=== PATIENT | female | born 1960 | race Caucasian/White ===

== ENCOUNTER 2020-03-07 01:13 | Outpatient (CLI) | payer BC, SELFPAY ==
[2020-03-07 18:17] LABS: SARS-CoV-2 RNA PCR Negative
== END 2020-03-07 01:14 | disposition home or self-care (01) ==
LOC: ANHCOVIDDT 01:14
PROVIDERS: PCP Internal Medicine; Visit Provider Internal Medicine Gastroenterology
DX: Z01.812 Encounter for preprocedural laboratory examination (principal); Z20.828 Contact with and (suspected) exposure to other viral communicable diseases
CPT/HCPCS: 87635; C9803; U0003

== ENCOUNTER 2020-03-09 01:10 | Day surgery (SDC) | payer BC, SELFPAY ==
[2020-03-05 10:54] VITALS: BMI 38.5
[2020-03-09 07:54] VITALS: BP 150/102; PULSE 85; RESP 18; TEMP 36; O2SAT 99
[2020-03-09 07:57] VITALS: BMI 38.5
[2020-03-09] MEDS: LACTATED RINGERS 1,000 ML 150 ML IV CONT (08:07)
[2020-03-09 08:10] LABS: Glucose Point of Care 199 (65-105)
--- NOTE | 2020-03-09 08:17 | WPDANESEPPF ---
Anes - Initial Pre Proc Eval Procedure: Operation Date: 03/09/20 09:00 Proposed Procedures p Screening Colonoscopy - Dwight Nguyen MD Date/Time: 03/09/20 08:17 Surgeon: Dwight Nguyen MD Pre Op Diagnosis: neoplasm screening Patient Data Age: 60 Gender: F Height: 5 ft 1 in Weight: 92.6 kg Last Vital Signs Temp 36.0 C L 03/09/20 07:54 Pulse 85 03/09/20 07:54 Resp 18 03/09/20 07:54 BP 150/102 H 03/09/20 07:54 Pulse Ox 99 03/09/20 07:54 Allergies Allergy/AdvReac Type Severity Reaction Status Date / Time codeine Allergy Severe Dizziness Verified 03/09/20 07:53 Home Medications Medication Instructions Recorded Confirmed Type blood sugar diagnostic #400 each 12/21/19 12/21/19 Rx blood-glucose meter #1 each 12/21/19 12/21/19 Rx felodipine 5 mg tablet,extended 5 mg PO DAILY 12/21/19 03/05/20 History release 24 hr insulin degludec 100 unit/mL (3 30 unit SUB-Q QPM 90 Days #30 ml 12/21/19 03/05/20 Rx mL) subcutaneous pen insulin lispro 100 unit/mL 3 - 7 unit SUB-Q TID 90 Days #30 ml 12/21/19 03/05/20 Rx subcutaneous pen metformin 1,000 mg tablet 1,000 mg PO BID #180 tablet 12/21/19 03/05/20 Rx pen needle, diabetic 31 gauge x #400 each 12/21/19 12/21/19 Rx 5/16 simvastatin 20 mg tablet 20 mg PO QPM tablet 12/21/19 03/05/20 History sitagliptin 100 mg tablet 100 mg PO QAM 90 Days #90 tablet 12/21/19 03/05/20 Rx valsartan 160 1 tablet PO DAILY 12/21/19 03/05/20 History mg-hydrochlorothiazide 25 mg tablet diclofenac sodium 75 mg PO DAILY PRN 03/05/20 03/05/20 History insulin lispro protamin-lispro 20 unit SUBCUT QAM 03/05/20 03/05/20 History [Humalog Mix 75-25 KwikPen] levocetirizine [Xyzal] 5 mg PO DAILY 03/05/20 03/05/20 History Laboratory Tests 03/09/20 08:06 POC Capillary Glucose 199 mg/dl H mg/dl (65-105) Patient hx anesthesia problems: none Family hx anesthesia problems: none PMFSH Past Medical History Medical History (Updated 03/09/20 @ 08:19 by Chalino Marks MD) Obesity Family History Family History Other Cerebrovascular accident Diabetes mellitus Family history of alcoholism Family history of arthritis Family history of hearing loss Hypertension Social History Social History Smoking status: Never smoker Alcohol intake: never Substance use: never Living arrangements: alone Spiritual care concerns: No Anes - Eval Final PreProcedure Day of Procedure 03/09/20 08:17 Patient weight: obese Heart: regular rate and rhythm Lungs: clear to auscultation Airway: Mallampati scale class II Neurological: alert and oriented Last oral intake: >/= 8 hours ASA classification: III Emergent: no Anesthetic plan: proceed Anesthesia type and monitoring: general GIVS and standard monitoring Informed Consent: The patient's anesthetic plan and its attendant risks and benefits were discussed with the patient/family/POA. Questions were solicited and answers provided to the satisfaction of the patient/family/POA.
--- NOTE | 2020-03-09 08:21 | PM.HPGS ---
History of Present Illness History of Present Illness Consent: Risks, benefits, and alternatives have been discussed and questions answered. Patient agrees to proceed with procedure. Chief complaint: neoplasm screening Narrative: Jayleen Hickman is a 60 year old female Here for colon cancer screening [facility] Past Medical History Medical History (Updated 03/09/20 @ 08:22 by Dwight Nguyen MD) Obesity Family History Family History Other Cerebrovascular accident Diabetes mellitus Family history of alcoholism Family history of arthritis Family history of hearing loss Hypertension Social History Social History Smoking status: Never smoker Alcohol intake: never Substance use: never Living arrangements: alone Spiritual care concerns: No Meds Home Medications and Allergies Home Medications Medication Instructions Recorded Confirmed Type blood sugar diagnostic #400 each 12/21/19 12/21/19 Rx blood-glucose meter #1 each 12/21/19 12/21/19 Rx felodipine 5 mg tablet,extended 5 mg PO DAILY 12/21/19 03/05/20 History release 24 hr insulin degludec 100 unit/mL (3 30 unit SUB-Q QPM 90 Days #30 ml 12/21/19 03/05/20 Rx mL) subcutaneous pen insulin lispro 100 unit/mL 3 - 7 unit SUB-Q TID 90 Days #30 ml 12/21/19 03/05/20 Rx subcutaneous pen metformin 1,000 mg tablet 1,000 mg PO BID #180 tablet 12/21/19 03/05/20 Rx pen needle, diabetic 31 gauge x #400 each 12/21/19 12/21/19 Rx 5/16 simvastatin 20 mg tablet 20 mg PO QPM tablet 12/21/19 03/05/20 History sitagliptin 100 mg tablet 100 mg PO QAM 90 Days #90 tablet 12/21/19 03/05/20 Rx valsartan 160 1 tablet PO DAILY 12/21/19 03/05/20 History mg-hydrochlorothiazide 25 mg tablet diclofenac sodium 75 mg PO DAILY PRN 03/05/20 03/05/20 History insulin lispro protamin-lispro 20 unit SUBCUT QAM 03/05/20 03/05/20 History [Humalog Mix 75-25 KwikPen] levocetirizine [Xyzal] 5 mg PO DAILY 03/05/20 03/05/20 History Allergies Allergy/AdvReac Type Severity Reaction Status Date / Time codeine Allergy Severe Dizziness Verified 03/09/20 07:53 Vital Signs Vital Signs - 24 hr 03/09/20 07:54 Temperature 36.0 C L Pulse Rate 85 Respiratory Rate 18 Blood Pressure 150/102 H Pulse Oximetry 99 Exam Resp: Auscultation: clear to auscultation bilaterally Cardio: Rate: regular rate Rhythm: regular rhythm GI: GI Palp: Yes Soft to palpation and No Tenderness to palpation present (GI) Assessment and Plan Assessment and plan (1) Colon cancer screening: Code(s): Z12.11 - Encounter for screening for malignant neoplasm of colon Status: Acute
[2020-03-09 09:14] VITALS: BP 98/53; PULSE 70; RESP 16; O2SAT 94
[2020-03-09 09:24] VITALS: BP 100/60; PULSE 73; RESP 16; O2SAT 98
[2020-03-09 09:27] LABS: Glucose Point of Care 186 (65-105)
[2020-03-09 09:34] VITALS: BP 108/58; PULSE 73; RESP 17; O2SAT 99
== END 2020-03-09 09:55 | disposition home or self-care (01) ==
PROVIDERS: PCP Internal Medicine; Visit Provider Internal Medicine Gastroenterology
PROC: 0DJD8ZZ Inspection of Lower Intestinal Tract, Via Natural or Artificial Opening Endoscopic (ICD-10-PCS; CPT 45378; principal; 2020-03-09 09:00)
DX: Z12.11 Encounter for screening for malignant neoplasm of colon (principal); K57.30 Diverticulosis of large intestine without perforation or abscess without bleeding; E11.9 Type 2 diabetes mellitus without complications; Z79.84 Long term (current) use of oral hypoglycemic drugs; Z79.4 Long term (current) use of insulin; E66.9 Obesity, unspecified; Z68.38 Body mass index [BMI] 38.0-38.9, adult
CPT/HCPCS: 45378; J2001; J2704; J7120

== ENCOUNTER 2020-11-22 09:40 | Outpatient (CLI) | payer BC, SELFPAY ==
--- NOTE | 2020-11-22 12:00 | NEURO_ITS ---
Impression: # Complains of numbness of hands. Patient is insulin dependent diabetic. # Subtle evolving left Carpal Tunnel Syndrome. # Normal needle/EMG exam. # Clinical correlation recommended. Nerve Conduction Studies Anti Sensory Summary Table Stim Site NR Peak (ms) P-T Amp (?V) Site1 Site2 Delta-P (ms) Dist (cm) Sumanth (m/s) Left Median Anti Sensory (2-3nd Digit) Wrist 3.1 73.3 Wrist 2-3nd Digit 3.1 14.0 45 Wrist 3.3 54.6 Wrist 2-3nd Digit 3.1 14.0 45 Right Median Anti Sensory (2-3nd Digit) Wrist 3.1 67.1 Wrist 2-3nd Digit 3.1 14.0 45 Wrist 3.3 57.9 Wrist 2-3nd Digit 3.1 14.0 45 Left Radial Anti Sensory (Base 1st Digit) Wrist 1.7 29.3 Wrist Base 1st Digit 1.7 0.0 Right Radial Anti Sensory (Base 1st Digit) Wrist 1.9 18.9 Wrist Base 1st Digit 1.9 0.0 Left Ulnar Anti Sensory (5th Digit) Wrist 2.5 54.8 Wrist 5th Digit 2.5 14.0 56 Right Ulnar Anti Sensory (5th Digit) Wrist 2.6 69.0 Wrist 5th Digit 2.6 14.0 54 Motor Summary Table Stim Site NR Onset (ms) O-P Amp (mV) Site1 Site2 Delta-0 (ms) Dist (cm) Sumanth (m/s) Left Median Motor (Abd Poll Brev) Wrist 3.9 3.6 Elbow Wrist 5.0 27.0 54 Elbow 8.9 4.6 Right Median Motor (Abd Poll Brev) Wrist 3.3 2.4 Elbow Wrist 5.0 25.0 50 Elbow 8.3 0.6 Left Ulnar Motor (Abd Dig Minimi) Wrist 2.4 5.5 A Elbow Wrist 5.3 28.0 53 A Elbow 7.7 4.8 Right Ulnar Motor (Abd Dig Minimi) Wrist 2.7 5.2 A Elbow Wrist 5.0 25.0 50 A Elbow 7.7 3.7 F Wave Studies NR F-Lat (ms) L-R F-Lat (ms) Left Median (Mrkrs) (Abd Poll Brev) 27.13 0.26 Right Median (Mrkrs) (Abd Poll Brev) 27.39 0.26 Left Ulnar (Mrkrs) (Abd Dig Min) 27.42 0.55 Right Ulnar (Mrkrs) (Abd Dig Min) 27.97 0.55 EMG Side Muscle Nerve Root Ins Act Fibs Amp Dur Recrt Comment Right 1stDorInt Ulnar C8-T1 Nml Nml Nml Nml Nml Right Ext Indicis Radial (Post Int) C7-8 Nml Nml Nml Nml Nml Right Ext Digitorum Radial (Post Int) C7-8 Nml Nml Nml Nml Nml Right BrachioRad Radial C5-6 Nml Nml Nml Nml Nml Right PronatorTeres Median C6-7 Nml Nml Nml Nml Nml Right Abd Poll Brev Median C8-T1 Nml Nml Nml Nml Nml Left 1stDorInt Ulnar C8-T1 Nml Nml Nml Nml Nml Left Ext Indicis Radial (Post Int) C7-8 Nml Nml Nml Nml Nml Left Ext Digitorum Radial (Post Int) C7-8 Nml Nml Nml Nml Nml Left BrachioRad Radial C5-6 Nml Nml Nml Nml Nml Left PronatorTeres Median C6-7 Nml Nml Nml Nml Nml Left Abd Poll Brev Median C8-T1 Nml Nml Nml Nml Nml MTDD
== END 2020-11-22 09:41 | disposition home or self-care (01) ==
PROVIDERS: PCP Internal Medicine; Visit Provider Physician Assistant Surgical
DX: G56.02 Carpal tunnel syndrome, left upper limb (principal); E11.9 Type 2 diabetes mellitus without complications
CPT/HCPCS: 95886; 95911

== ENCOUNTER 2021-04-20 19:46 | Emergency (ER) | payer OTHER, BC, SELFPAY ==
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
[2021-04-20 19:59] VITALS: BP 156/105; PULSE 94; RESP 16; TEMP 36.4; O2SAT 99
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
== END 2021-04-20 20:22 | disposition home or self-care (01) ==
PROVIDERS: Emergency Provider Nurse Practitioner; PCP Internal Medicine
DX: S60.221A Contusion of right hand, initial encounter (principal); I10 Essential (primary) hypertension; E11.9 Type 2 diabetes mellitus without complications; V89.2XXA Person injured in unspecified motor-vehicle accident, traffic, initial encounter
CPT/HCPCS: 73130; 99213; G0463